=== PATIENT | female | born 1995 | race Caucasian/White ===

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

== ENCOUNTER 2021-01-05 09:53 | Emergency (ER) | payer OTHER ==
[~2021-01-05] VITALS: Ht 160 cm; Wt 46.3 kg
[~2021-01-05 09:53] MED LIST changes: +BACTRIM DS TAB1 EACH PO; +DOXYCYCLINE HY100 M3 PO
[2021-01-05] MEDS ORDERED: NOHOMEMEDICATIONS (10:08)
[2021-01-05 10:17] LABS: URINE BILIRUBIN NEGATIVE (Negative); URINE BLOOD NEGATIVE (Negative); URINE CLARITY CLEAR; URINE COLOR YELLOW; URINE GLUCOSE-RANDOM* NEGATIVE (Negative); URINE KETONES NEGATIVE (Negative); URINE PROTEIN (DIPSTICK) NEGATIVE (Negative); URINE SPECIFIC GRAVITY <= 1.005 (1.005-1.035); URINE UROBILINOGEN 0.2 E.U./dl (0.2-1.0)
[2021-01-05 10:20] LABS: URINE LEUKOCYTES-REFLEX 1+ (Negative); URINE NITRITE-REFLEX POSITIVE (Negative)
[2021-01-05 10:27] LABS: BACTERIA-REFLEX >30 Many /HPF (None Seen); CASTS None Seen /LPF (None Seen); CRYSTALS None Seen /LPF (None Seen); SQUAMOUS 0-3 Few /LPF (0-3); URINE RBC None Seen /HPF (NONE SEEN); URINE WBC-REFLEX 6-15 Few /HPF (0-5)
[2021-01-05] MEDS ORDERED: DORYX MPC120 MG PO (11:45)
[2021-01-05] MEDS ORDERED: ACYCLOVIR 200200 MG PO (11:45)
[2021-01-05] MEDS ORDERED: FLAGYL500 M1 PO (11:45)
[2021-01-05 11:59] VITALS: BP 123/83
== END 2021-01-05 12:00 | disposition home or self-care (01) ==
LOC: ER 09:53
PROVIDERS: Emergency Medicine
DX: N76.0 Acute vaginitis (principal)